=== PATIENT | female | born 1975 | race Caucasian/White ===

== ENCOUNTER → 2016-10-03 | Outpatient (CLI) | payer OTHER ==
[~2016-10-03] MED LIST: ALBUAER19 INH; HYDR2TAB48 PO; OPTIRAY 320 IV PRN; PSYL1POW4 PO; SYMIN/8045 INH
[2016-10-03 14:02] LABS: ALB/GLOB RATIO 0.9 (0.9-2); AMYLASE 43 U/L (25-115); AST/SGOT 9 U/L (15-37); BLOOD UREA NITROGEN 11 mg/dl (7-18); BUN/CREATININE RATIO 13.6 (10-20); CARBON DIOXIDE 22 mmol/L (21-32); CHLORIDE 107 mmol/L (98-107); GLUCOSE 86 mg/dl (70-99); POTASSIUM 4.5 mmol/L (3.5-5.1); SODIUM 139 mmol/L (136-145)
[2016-10-03 14:03] LABS: ALKALINE PHOSPHATASE 126 U/L (45-117); ALT/SGPT 15 U/L (12-78); C-REACTIVE PROTEIN 1.05 mg/dl (0-0.29)
--- NOTE | 2016-10-03 14:35 | DIAGNOSTIC IMAGING REPORT ---
CT OF THE ABDOMEN AND PELVIS WITH CONTRAST CLINICAL HISTORY: Abdominal pain, nausea and bloating. COMPARISON STUDY: CT of the abdomen and pelvis October 14, 2015 and abdominal ultrasound August 01, 2016 TECHNIQUE: Following IV administration of 93 mL of Optiray-320, axial images of the abdomen and pelvis were obtained from the lung bases to the proximal femurs. Images were reviewed in the axial, sagittal, and coronal planes. IV contrast was administered without complication. Oral contrast was administered. CT DOSE: 1229.93 mGy.cm FINDINGS: A 3.1 cm right adrenal lesion was shown to represent an adenoma on prior MRI. A 9 mm hypodense medial segment left hepatic lobe lesion was present on exam of August 18, 2013. Therefore, this is benign. The spleen, left adrenal gland and pancreas are normal as are the kidneys. There is no hydronephrosis. The caliber and wall thickness of small and large bowel are normal. The uterus is surgically absent. There are follicles within the ovaries. There are scattered colonic diverticula without evidence for acute diverticulitis. No suspicious osseous lesion is present. A right sided seton is in place. No abscess is identified within the perianal/perirectal region by CT. The appendix is normal. IMPRESSION: 1. No acute process within the abdomen or pelvis. 2. Normal appendix. 3. Right perianal seton in place. No perianal/perirectal abscess by CT. Electronically signed by: Heriberto Swanson M.D. 10/03/2016 2:34 PM Dictated Date/Time: 10/03/2016 2:25 PM
[2016-10-03 14:43] LABS: BASO % 0.1 %; BASO ABS # 0.02 K/uL (0-0.2); COMPLETE YES; EOS % 2.1 %; HEMATOCRIT 45.8 % (37-47); IG% 0.3 %; LYMPH ABS # 3.84 K/uL (1.2-3.4); MEAN CELL VOLUME 88.8 fL (80-100); MEAN CORPUSCULAR HEMOGLOBIN 30.6 pg (25-34); MEAN CORPUSCULAR HGB CONC 34.5 g/dl (32-36); MONO % 4.2 %; NEUT % 65.3 %; PLATELET COUNT 443 K/uL (130-400); RED BLOOD COUNT 5.16 M/uL (4.2-5.4); WHITE BLOOD COUNT 13.72 K/uL (4.8-10.8)
[2016-10-06 23:28] LABS: IGA SERUM 370 mg/dL (81-463); TIS TRANS IGA 1 U/mL (<4)
== END | disposition home or self-care (01) ==
LOC: C.CTS 12:17
PROVIDERS: ATTEND Registered Nurse
DX: R11.0 Nausea (principal); R14.0 Abdominal distension (gaseous); R10.9 Unspecified abdominal pain

== ENCOUNTER → 2016-12-07 | Outpatient (CLI) | payer OTHER ==
[~2016-12-07] MED LIST changes: -OPTIRAY 320 IV PRN
--- NOTE | 2016-12-07 13:42 | DIAGNOSTIC IMAGING REPORT ---
NUCLEAR GASTRIC EMPTYING STUDY CLINICAL HISTORY: Generalized abdominal pain. COMPARISON STUDY: Abdominal CT dated 10/03/2016. TECHNIQUE: Following the oral administration of 1.074 mCi of technetium 99m sulfur colloid in egg sandwich and 8 ounces of water, static abdominal images are obtained anteriorly and posteriorly at 0 minutes, 1 hour, 2 hour, and 4 hour time intervals. Gastric emptying was calculated utilizing the geometric mean method. FINDINGS: There is approximately 7 the% activity remaining at the 1 hour time interval, 39% remaining at the 2 hour time interval (normal is less than 60%), and 8% activity remaining at the 4 hour time interval (normal is less than 10%). IMPRESSION: Findings are consistent with normal gastric emptying for solids. Electronically signed by: Carl Meyer M.D. 12/07/2016 1:40 PM Dictated Date/Time: 12/07/2016 1:39 PM
== END | disposition home or self-care (01) ==
LOC: C.NUCL 08:55
PROVIDERS: ATTEND Registered Nurse
DX: R10.9 Unspecified abdominal pain (principal)

== ENCOUNTER → 2018-03-06 | Outpatient (CLI) | payer OTHER ==
--- NOTE | 2018-03-15 08:47 | PULMONARY FUNCTION TEST ---
Pre-bronchodilator spirometry reveals a moderately severe obstructive ventilatory defect even more pronounced low lung volumes. There was an excellent response to bronchodilators suggesting a reversible airways component. Lung volumes demonstrate evidence for significant hyperinflation and air trapping. Diffusion capacity was minimally reduced. Clinical correlation is needed.
== END | disposition home or self-care (01) ==
LOC: C.RC 13:55
PROVIDERS: ATTEND Physician Assistant Medical
DX: R05 Cough (principal); F17.200 Nicotine dependence, unspecified, uncomplicated

== ENCOUNTER 2018-03-31 21:21 | Inpatient (IN) | payer OTHER ==
[~2018-03-31] VITALS: Ht 162.6 cm; Wt 115.3 kg
[2018-03-31] MEDS ORDERED: METOCLOPRAMIDE HCL INJ 5 MG/ML 2 ML VIAL IV STA (21:51)
[2018-03-31] MEDS ORDERED: KETOROLAC TROMETHAMINE 30 MG/ML VIAL IV STA (21:51)
[2018-03-31] MEDS ORDERED: SODIUM CHLORIDE 0.9% 1000ML 1,000 ML IV STA (21:51)
[2018-03-31] MEDS ORDERED: CIPROFLOXACIN 400MG / 200ML D5W IV STA (21:51)
[2018-03-31] MEDS ORDERED: DiphenhydrAMINE HCL 50 MG/ML VIAL IV STA (21:51)
[2018-03-31] MEDS ORDERED: METRONIDAZOLE 500MG / 100ML NSS IV STA (21:51)
[2018-03-31] MEDS ORDERED: OPTIRAY 320 IV PRN (22:00)
[2018-03-31 22:48] LABS: BASO % 0.1 %; BASO ABS # 0.02 K/uL (0-0.2); EOS % 1.6 %; EOS ABS # 0.29 K/uL (0-0.5); HEMATOCRIT 40.3 % (37-47); HEMOGLOBIN 13.6 g/dL (12.0-16.0); IG# 0.05 K/uL (0.00-0.02); LYMPH % 18.5 %; LYMPH ABS # 3.45 K/uL (1.2-3.4); MEAN CELL VOLUME 91.2 fL (80-100); MEAN CORPUSCULAR HEMOGLOBIN 30.8 pg (25-34); MEAN CORPUSCULAR HGB CONC 33.7 g/dl (32-36); MEAN PLATELET VOLUME 9.9 fL (7.4-10.4); MONO % 5.7 %; MONO ABS # 1.06 K/uL (0.11-0.59); NEUT % 73.8 %; PLATELET COUNT 356 K/uL (130-400); RED CELL DISTRIBUTION WIDTH SD 43.3 fL (36.4-46.3); WHITE BLOOD COUNT 18.67 K/uL (4.8-10.8)
[2018-03-31 22:54] LABS: CALCIUM 8.3 mg/dl (8.5-10.1); CREATININE 0.65 mg/dl (0.60-1.20); POTASSIUM 3.6 mmol/L (3.5-5.1)
[2018-04-01] MEDS ORDERED: ONDANSETRON INJ 2 MG/ML 2 ML VIAL IV PRN ×2 (02:15→07:30)
[2018-04-01] MEDS ORDERED: HYDROmorphone INJ 1 MG/ML SYR IV PRN (02:15)
[2018-04-01] MEDS ORDERED: HYDROmorphone INJ 0.5 MG/0.5 ML SYR IV PRN (02:15)
[2018-04-01] MEDS ORDERED: SODIUM CHLORIDE 0.9% 1000ML 1,000 ML IV SCH (02:15)
[2018-04-01] MEDS ORDERED: ACETAMINOPHEN IV 100 ML IV PRN (02:15)
--- NOTE | 2018-04-01 02:28 | Surgery Consultation ---
Consultation Date of Consultation: Apr 01, 2018. Attending Physician: Reason for Consultation: Perirectal abscess History of Present Illness Patient is an otherwise healthy 42F who presented to the ED tonight due to rectal pain and swelling. Reports she has a history of perirectal abscesses and follows with Dr. Valdivia in [place]. 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 Her last was approximately 2 years ago and she had a seton placed at that time due to a fistulous tract. Reports she has had no problems since then. She has not noticed any discharge from the area but feels it is tender, red and swelling similar to her abscesses in the past. Reports she typically has these drained in the OR. Denies fever, chills, recent illness. She does not take any blood thinning or anticoagulant medications. WBC 18.67. CT Pelvis w/ IV contrast shows round complex fluid collection along the right gluteal cleft measuring 4.0 x 2.9 x 2.7 cm, small adjacent wire/suture in place, regional reactive changes including fat stranding, edema and skin thickening. Social History Smoking Status: Current Every Day Smoker Marital Status: Housing Status: lives with family Occupation Status: unemployed Allergies Coded Allergies: Codeine (Verified Allergy, Mild, itching, 04/01/18) Oxycodone (Verified Adverse Reaction, Severe, GI SYMPTOMS, 04/01/18) HEADACHE & N/V Home Medications Scheduled PRN Albuterol Inhaler (Ventolin Inhaler), 2 PUFFS INH Q4H PRN for Asthma Symptoms Budesonide/Formoterol Fumarate (Symbicort 80/4.5 Inhaler), 2 PUFFS INH BID PRN for SOB/Wheezing Current Inpatient Medications Current Inpatient Medications Medications (Trade) Dose Ordered Sig/Eloy Route Start Time Stop Time Status Last Admin Dose Admin Ioversol (Optiray 320) 100 ml UD PRN IV 03/31/18 22:00 04/04/18 21:59 Review of Systems Constitutional: No fever, No chills Respiratory: No shortness of breath Cardiovascular: No chest pain Abdomen: No pain Genitourinary - Female: No dysuria, No hematuria Integumentary: + problem reported (perirectal abscess) Physical Exam Date Time Temp Pulse Resp B/P (MAP) Pulse Ox O2 Delivery O2 Flow Rate FiO2 04/01/18 00:00 84 16 133/75 95 Room Air 03/31/18 23:22 82 16 136/69 92 Room Air 03/31/18 21:28 36.8 100 20 150/94 95 Room Air General Appearance: no apparent distress, + obese Head: atraumatic ENT: hearing grossly normal Respiratory/Chest: no respiratory distress Abdomen/GI: non tender, soft Neurologic/Psych: alert, normal mood/affect, oriented x 3 Skin: + pertinent finding (erythema, mild swelling and moderate TTP along right gluteal cleft w/ palpable fluid collection - seton appreciated and appears in place - no significant induration noted on exam. ) Laboratory Results Last 24 Hours Test 03/31/18 22:19 03/31/18 22:20 03/31/18 22:25 Urine Color YELLOW Urine Appearance CLEAR Urine pH 7.0 Urine Specific [place] 1.004 Urine Protein NEG Urine Glucose (UA) NEG Urine Ketones NEG Urine Occult Blood NEG Urine Nitrite NEG Urine Bilirubin NEG Urine Urobilinogen NEG Urine Leukocyte Esterase NEG White Blood Count 18.67 K/uL Red Blood Count 4.42 M/uL Hemoglobin 13.6 g/dL Hematocrit 40.3 % Mean Corpuscular Volume 91.2 fL Mean Corpuscular Hemoglobin 30.8 pg Mean Corpuscular Hemoglobin Concent 33.7 g/dl Platelet Count 356 K/uL Mean Platelet Volume 9.9 fL Neutrophils (%) (Auto) 73.8 % Lymphocytes (%) (Auto) 18.5 % Monocytes (%) (Auto) 5.7 % Eosinophils (%) (Auto) 1.6 % Basophils (%) (Auto) 0.1 % Neutrophils # (Auto) 13.80 K/uL Lymphocytes # (Auto) 3.45 K/uL Monocytes # (Auto) 1.06 K/uL Eosinophils # (Auto) 0.29 K/uL Basophils # (Auto) 0.02 K/uL RDW Standard Deviation 43.3 fL RDW Coefficient of Variation 13.0 % Immature Granulocyte % (Auto) 0.3 % Immature Granulocyte # (Auto) 0.05 K/uL Sodium Level 137 mmol/L Potassium Level 3.6 mmol/L Chloride Level 105 mmol/L Carbon Dioxide Level 25 mmol/L Anion Gap 7.0 mmol/L Blood Urea Nitrogen 7 mg/dl Creatinine 0.65 mg/dl Est Creatinine Clear Calc Drug Dose 139.1 ml/min Estimated GFR () 126.0 Estimated GFR (Non- 108.7 BUN/Creatinine Ratio 11.1 Random Glucose 92 mg/dl Calcium Level 8.3 mg/dl Bedside Lactic Acid Venous 0.75 mmol/L Assessment & Plan recurrent perirectal abscess Findings discussed with Dr. Bonilla and Freda Joshi PA-C. Perirectal area w/ erythema, swelling, TTP - no significant induration at this time. WBC 18.67, afebrile, vitals stable. Given her white count and findings on exam and imaging - patient would greatly benefit from IV antibiotics and I&D. Patient initially did not want to be admitted against our recommendations- risks of leaving AMA were discussed with her in detail - after some time to think she was agreeable to admission. Plan for I&D perirectal abscess in the OR with Dr. Bonilla later this morning. Risks, benefits alternatives to the procedure were discussed - questions answered. Admit med/surg, NPO, IVF, IV Cipro/Flagyl, pain medication prn, Zofran prn, SCDs. OR notified. Please contact with questions or concerns.
--- NOTE | 2018-04-01 02:35 | EMERGENCY ROOM VISIT NOTE ---
History First contact with patient: 21:37 Chief Complaint: RECTAL PAIN Stated Complaint: CORINA ANAL ABCESS Nursing Triage Summary: Pt states that she started to have rectal pain . On Monday the pain became more severe. Pt states that she has a history of perirectal abcess and she is pretty sure that is what she has. Pt stated that she came to the ED tonight become the pain has become to severe to wait to go to her surgeon. History of Present Illness The patient is a 42 year old female who presents to the Emergency Room with complaints of rectal pain and swelling.Pt states she has a history of perirectal abscesses and follows with Dr. Valdivia in [place]. 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 Her last was approximately 2 years ago and she had a seton placed at that time due to a fistulous tract. Reports she has had no problems since then. She has not noticed any discharge from the area but feels it is tender, red and swelling similar to her abscesses in the past. Reports she typically has these drained in the OR. Patient denies chest pain, dyspnea, fever, chills, cough, congestion, nausea, vomiting, diarrhea, lightheadedness or dizziness. Tetanus is current. No drug use. Review of Systems An 10 system review of systems was completed with positives and pertinent negatives listed in the HPI. Past Medical/Surgical History Medical Problems: (1) Corina-rectal abscess Social History Smoking Status: Current Every Day Smoker Alcohol Use: occasionally Marital Status: Housing Status: lives with family Occupation Status: unemployed Current/Historical Medications Scheduled PRN Albuterol Inhaler (Ventolin Inhaler), 2 PUFFS INH Q4H PRN for Asthma Symptoms Budesonide/Formoterol Fumarate (Symbicort 80/4.5 Inhaler), 2 PUFFS INH BID PRN for SOB/Wheezing Physical Exam Vital Signs Date Time Temp Pulse Resp B/P (MAP) Pulse Ox O2 Delivery O2 Flow Rate FiO2 04/01/18 02:04 85 16 149/89 96 Room Air 04/01/18 00:00 84 16 133/75 95 Room Air 03/31/18 23:22 82 16 136/69 92 Room Air 03/31/18 21:28 36.8 100 20 150/94 95 Room Air Physical Exam VITALS: Vitals are noted on the nurse's note and reviewed by myself. Vital signs stable. GENERAL: pleasant female, in no acute distress, nondiaphoretic, well-developed well-nourished. SKIN: The skin was without rashes, erythema, edema, or bruising. There is no tenting of the skin. Capillary reflex less than 2 seconds. HEAD: Normocephalic atraumatic. EARS: External auditory canals clear, tympanic membranes pearly noonan without erythema or effusion bilaterally. EYES: Pupils equal round and reactive to light and accommodation. Conjunctivae without injection, sclerae without icterus. Extraocular movements intact. NOSE: Patent, turbinates without inflammation or discharge MOUTH: Mucous membranes moist. Pharynx without erythema or exudate. Uvula midline. Airway patent. Tongue does not deviate. NECK: Supple without nuchal rigidity. No lymphadenopathy. No thyromegaly. Cervical spine is nontender. No JVD. HEART: Regular rate and rhythm without murmurs gallops or rubs. LUNGS: Clear to auscultation bilaterally without wheezes, rales or rhonchi. No retractions or accessory muscle use. ABDOMEN: Positive bowel sounds x 4. Normal tympanic percussion. Soft, nontender, without masses or organomegaly. Casiano sign negative. No guarding or rebound tenderness. No CVA tenderness. Rectal exam: Rectal area erythematous and edematous with fistula tract suture in place concerning for cellulitis and abscess. No perineum pain or redness. No lymphangitis. MUSCULOSKELETAL: No muscle atrophy, erythema, or edema noted. NEURO: Patient was alert and oriented to person place and time. Normal sensation to light and sharp touch. No focal neurological deficits. Medical Decision & Procedures Laboratory Results 03/31/18 22:20 Red Blood Count 4.42, Mean Corpuscular Volume 91.2, Mean Corpuscular Hemoglobin 30.8, Mean Corpuscular Hemoglobin Concent 33.7, Mean Platelet Volume 9.9, Neutrophils (%) (Auto) 73.8, Lymphocytes (%) (Auto) 18.5, Monocytes (%) (Auto) 5.7, Eosinophils (%) (Auto) 1.6, Basophils (%) (Auto) 0.1, Neutrophils # (Auto) 13.80, Lymphocytes # (Auto) 3.45, Monocytes # (Auto) 1.06, Eosinophils # (Auto) 0.29, Basophils # (Auto) 0.02 03/31/18 22:20 Test 03/31/18 22:19 03/31/18 22:20 03/31/18 22:25 Urine Color YELLOW Urine Appearance CLEAR (CLEAR) Urine pH 7.0 (4.5-7.5) Urine Specific [place] 1.004 (1.000-1.030) Urine Protein NEG (NEG) Urine Glucose (UA) NEG (NEG) Urine Ketones NEG (NEG) Urine Occult Blood NEG (NEG) Urine Nitrite NEG (NEG) Urine Bilirubin NEG (NEG) Urine Urobilinogen NEG (NEG) Urine Leukocyte Esterase NEG (NEG) White Blood Count 18.67 K/uL (4.8-10.8) Red Blood Count 4.42 M/uL (4.2-5.4) Hemoglobin 13.6 g/dL (12.0-16.0) Hematocrit 40.3 % (37-47) Mean Corpuscular Volume 91.2 fL (80-100) Mean Corpuscular Hemoglobin 30.8 pg (25-34) Mean Corpuscular Hemoglobin Concent 33.7 g/dl (32-36) Platelet Count 356 K/uL (130-400) Mean Platelet Volume 9.9 fL (7.4-10.4) Neutrophils (%) (Auto) 73.8 % Lymphocytes (%) (Auto) 18.5 % Monocytes (%) (Auto) 5.7 % Eosinophils (%) (Auto) 1.6 % Basophils (%) (Auto) 0.1 % Neutrophils # (Auto) 13.80 K/uL (1.4-6.5) Lymphocytes # (Auto) 3.45 K/uL (1.2-3.4) Monocytes # (Auto) 1.06 K/uL (0.11-0.59) Eosinophils # (Auto) 0.29 K/uL (0-0.5) Basophils # (Auto) 0.02 K/uL (0-0.2) RDW Standard Deviation 43.3 fL (36.4-46.3) RDW Coefficient of Variation 13.0 % (11.5-14.5) Immature Granulocyte % (Auto) 0.3 % Immature Granulocyte # (Auto) 0.05 K/uL (0.00-0.02) Anion Gap 7.0 mmol/L (3-11) Est Creatinine Clear Calc Drug Dose 139.1 ml/min Estimated GFR () 126.0 Estimated GFR (Non- 108.7 BUN/Creatinine Ratio 11.1 (10-20) Calcium Level 8.3 mg/dl (8.5-10.1) Bedside Lactic Acid Venous 0.75 mmol/L (0.90-1.70) Medications Administered Medications (Trade) Dose Ordered Sig/Eloy Route Start Time Stop Time Status Last Admin Dose Admin Ciprofloxacin/ Dextrose (Cipro / D5W) 400 mg NOW STAT IV 03/31/18 21:51 03/31/18 21:56 DC 03/31/18 23:53 400 MG Metronidazole (Flagyl / Nss) 500 mg NOW STAT IV 03/31/18 21:51 03/31/18 21:56 DC 03/31/18 22:36 500 MG Ketorolac Tromethamine (Toradol Inj) 10 mg NOW STAT IV 03/31/18 21:51 03/31/18 21:56 DC 03/31/18 22:36 10 MG Metoclopramide HCl (Reglan Inj) 10 mg NOW STAT IV 03/31/18 21:51 03/31/18 21:56 DC 03/31/18 22:35 10 MG Diphenhydramine HCl (Benadryl Inj) 25 mg NOW STAT IV 03/31/18 21:51 03/31/18 21:56 DC 03/31/18 22:36 25 MG Sodium Chloride 1,000 ml @ 999 mls/hr Q1H1M STAT IV 03/31/18 21:51 03/31/18 22:51 DC 03/31/18 22:34 999 MLS/HR ED Course Prior records/ancillary studies reviewed. Triage Nursing notes reviewed. Additional history obtained from family The patient's history was concerning for rectal pain. Differential diagnosis: Etiologies such as rectal abscess, rectal cellulitis, Esteban's gangrene, diverticulitis, UTI, infections, inflammatory bowel disease, renal colic, as well as others were entertained. Physical examination findings: As above. ER treatment provided: Cipro, Flagyl, IV fluids, Toradol, Reglan, Benadryl On reassessment the patient felt better. Diagnostics interpreted by me: The labs revealed leukocyte ptosis, stable H&H. Imaging studies: CT PELVIS: Rounded complex fluid collection is identified along the rightward gluteal cleft measuring 4.0 x 2.9 x 2.7 cm. Small adjacent wire or suture is identified, correlate for previous surgery and history of fistula. There are regional reactive changes including fat stranding/edema as well as skin thickening. Limited characterization of the distal rectum due to underdistention and lack of intraluminal contrast. Unremarkable appearance of the appendix. Fatty umbilical hernia. Radiologist: Maulik Pérez MD Consultation: A consultation was placed with the surgical PADaniel. The case was discussed and diagnostics were reviewed. The patient was evaluated in the ER for further treatment. Patient was admitted to their service Exam and history seem consistent with perirectal abscess that is recurrent. Surgery was consulted. They will admit the patient. She was started on antibiotics. Patient agrees to treatment plan. Patient is afebrile and nontoxic. No signs of Esteban's gangrene. Lactic acid was negative. By the evaluation outlined above emergent etiologies such as appendicitis, diverticulitis, PUD, biliary pathology, UTI, pancreatitis, obstruction, mesenteric ischemia, aortic pathology, inflammatory bowel disease, renal colic , as well as others were deemed relatively unlikely. The pt informed about the findings as listed above. All questions were answered and pleased with the treatment. Case reviewed with my attending The chart was completed utilizing [employer] Speech voice recognition software. Grammatical errors, random word insertions, pronoun errors, and incomplete sentences are an occassional consequence of this system due to software limitations, ambient noise, and hardware issues. Any formal questions or concerns about the content, text, or information contained within the body of this dictation should be directly addressed to the physician assistant professor of sociology for clarification. Medical Decision As above Medication Reconcilliation Current Medication List: was personally reviewed by me Blood Pressure Screening Patient's blood pressure: Normal blood pressure Impression Primary Impression: Corina-rectal abscess Departure Information Dispostion Being Evaluated By Surgeon Condition GOOD Referrals Raya Galvez,P.A. (PCP) Patient Instructions [facility]
[2018-04-01 03:24] VITALS: BP 147/84; PULSE 84; TEMP 37; O2SAT 96; Ht 162.6 cm; Wt 115.3 kg
[2018-04-01] MEDS ORDERED: HYDROmorphone INJ 1 MG/ML SYR ONE ×2 (04:05→08:47)
[2018-04-01] MEDS ORDERED: METRONIDAZOLE / NSS 500 MG in PREMIXED NSS 100 ML IV SCH (06:00)
[2018-04-01] MEDS ORDERED: ONDANSETRON INJ 2 MG/ML 2 ML VIAL ONE (07:08)
[2018-04-01] MEDS ORDERED: LIDOCAINE HCL 2% 2 ML VIAL (20MG/ML) ONE (07:08)
[2018-04-01] MEDS ORDERED: MIDAZOLAM HCL 1 MG/ML 2ML VIAL ONE (07:08)
[2018-04-01] MEDS ORDERED: FENTANYL CITRATE INJ 50 MCG/1 ML 2 ML VIAL ONE ×2 (07:08→08:23)
[2018-04-01] MEDS ORDERED: PROPOFOL IV EMULSION 10 MG/ML 20 ML VIAL ONE (07:08)
[2018-04-01] MEDS ORDERED: ROCURONIUM BROMIDE 10 MG/ML 5 ML VIAL ONE (07:08)
[2018-04-01] MEDS ORDERED: DEXAMETHASONE SOD INJ 4 MG/ML VIAL ONE (07:08)
[2018-04-01] MEDS ORDERED: ATROPINE SULFATE 0.1 MG/ML 5ML SYR IV PRN ×2 (07:30→10:30)
[2018-04-01] MEDS ORDERED: PHENYLEPHRINE 100MCG/ML 5ML SYR IV PRN (07:30)
[2018-04-01] MEDS ORDERED: EpHEDrine SULFATE INJ 50 MG/ML AMP IV PRN ×2 (07:30→10:30)
[2018-04-01 07:46] VITALS: BP_SYST 117; BP_SYST 145; BP_DIAS 68; BP_DIAS 76; PULSE 64; PULSE 84; TEMP 37.1; TEMP 37.3; O2SAT 92; O2SAT 95
[2018-04-01] MEDS ORDERED: BUPIVACAINE/EPINEPHRINE 0.5% MPF 1:200,000 30 ML VIAL ONE (07:47)
[2018-04-01] MEDS ORDERED: GELATIN SPONGE SZ 100 ONE (07:47)
[2018-04-01] MEDS ORDERED: METR-162 PO (08:02)
[2018-04-01] MEDS ORDERED: CIPR1TAB10 PO (08:02)
[2018-04-01] MEDS ORDERED: TRAM-453 PO (08:02)
--- NOTE | 2018-04-01 08:23 | [facility] Post Operative Brief Note ---
Immediate Operative Summary Operative Date Apr 01, 2018. Pre-Operative Diagnosis carol-rectal abcess Post-Operative Diagnosis same as pre op Procedure(s) Performed incision/drainage of carol-rectal abcess Surgeon Bonilla Manager Respiratory Care Surgeon(s) Jose Stark Estimated Blood Loss 5 cc Findings Consistent with Post-Op Diagnosis Specimens fluid for culture Complication(s) none
[2018-04-01] MEDS ORDERED: RANITIDINE HCL 25 MG/ML INJ ONE (08:36)
--- NOTE | 2018-04-01 08:36 | Discharge Instructions ---
Discharge Instructions Date of Service Apr 01, 2018. Admission Reason for Admission: Corina-Rectal Abscess Discharge Discharge Diagnosis / Problem: Corina-Rectal Abscess Discharge Goals Goal(s): Decrease discomfort, Improve function Activity Recommendations Activity Limitations: as noted below Lifting Limitations: gradually increase as tolerated Exercise/Sports Limitations: as tolerated May Resume Sexual Activity: when tolerated Shower/Bathe: no limitations Driving or Machine Use: resume 1 day after discharge . Instructions / Follow-Up Instructions / Follow-Up You have been prescribed oral antibiotics and a prescription pain medication. It is important to take this medications as prescribed. Packing should be changed daily. Please follow-up with Dr. Valdivia- if you are unable to get an appointment, please follow-up with Dr. Bonilla in the General Surgery Clinic for wound check and packing change. Please call the General Surgery Clinic at [phone]. General Surgery clinic is located at [address] [place], [place] [address]. General Surgery Clinic phone number is [phone]. If you have any questions or concerns, please call the General Surgery Clinic at [phone]. Current Hospital Diet Patient's current hospital diet: Discharge Diet Recommended Diet: Regular Diet Pending Studies Studies pending at discharge: yes List of pending studies: Wound culture. Medical Emergencies . Who to Call and When: Medical Emergencies: If at any time you feel your situation is an emergency, please call 911 immediately. . Non-Emergent Contact Non-Emergency issues call your: Primary Care Provider, Surgeon Call Non-Emergent contact if: temperature is above 101.5, your pain is not controlled, wound has increased drainage, wound has increased redness . "Provider Documentation" section prepared by Janis Garcia. .
[2018-04-01] MEDS: HYDROmorphone INJ 1 MG/ML SYR IV PRN ×2 (08:48→08:54)
--- NOTE | 2018-04-01 08:48 | DIAGNOSTIC IMAGING REPORT ---
CT OF THE PELVIS WITH CONTRAST CLINICAL HISTORY: Perianal abscess. Rectal pain and swelling. COMPARISON STUDY: CT of the abdomen and pelvis October 03, 2016. TECHNIQUE: Axial images of the pelvis were obtained following intravenous injection of 94 cc Optiray 320 IV. Sagittal and coronal reconstructions were viewed. FINDINGS: No pelvic lymphadenopathy is noted. There is no ascites. Caliber and wall thickness of visualized small and large bowel are normal. The appendix is unremarkable. A right sided seton is in place. There is moderate inflammation within the medial right gluteal fold. Note is made of a 3 x 2.4 x 2.3 cm right perirectal/gluteal fold fluid collection which is suggestive of an abscess. The seton adjacent to the course is through a portion of this suspected abscess. No additional abscesses are identified. Visualized skeletal structures are unremarkable. IMPRESSION: 3 x 2.4 x 2.3 cm right perirectal/medial gluteal fold abscess with associated cellulitis. Right seton in place. Electronically signed by: Heriberto Swanson M.D. 04/01/2018 8:47 AM Dictated Date/Time: 04/01/2018 8:41 AM
[2018-04-01 09:25] VITALS: BP 131/70; PULSE 78; TEMP 36.8; O2SAT 97
--- NOTE | 2018-04-01 09:46 | [facility] Operative Report ---
Operative Report Operative Date Apr 01, 2018. Pre-Operative Diagnosis carol-rectal abcess Post-Operative Diagnosis same as pre op Procedure(s) Performed incision/drainage of carol-rectal abcess Surgeon Chad Hogshead Roller Surgeon(s) Jose Stark Estimated Blood Loss 5 cc Specimens fluid for culture Anesthesia Type General Complication(s) none Description of Procedure After informed consent was obtained the patient was taken to the operating room and placed in a supine position. After successful placement of the laryngeal mask airway the patient was placed in a high lithotomy position. The perirectal area was sterilely prepped and draped in usual fashion. I began by using an 18-gauge finder needle to locate the abscess without difficulty. About 7 cc was obtained and sent for culture and sensitivity. I then used a 15 blade scalpel to make an incision directly over the abscess. This was carried down through the soft tissue using primarily blunt finger fractionation until I encountered a moderate sized abscess cavity. It did track medially towards the rectum itself and towards her current seton. I obtained a fair amount of noonan foul-smelling fluid. After extracting all that I could manually we then thoroughly irrigated the wound. It was packed with half-inch iodoform packing. Sterile gauze and tape dressing were applied. The patient was placed back into a supine position and extubated. She was transferred to the recovery room in stable condition. My physician's clinical services assistant was present for the entire case. She will prep the patient. Help with exposure as well as dressing placement. Prior to going back to the operating room I discussed with the patient staying overnight for continued IV antibiotics following, her fever curve and rechecking her white blood cell count as well as local wound care prior to discharge, likely tomorrow. The patient adamantly refused this. She wants to go home. We will send her home on oral antibiotics. She states she will follow up with her colorectal surgeon within the next couple of days. If she is unable to follow-up with him she is to follow-up with me early next week. She knows how to perform local wound care. Her significant other has done packing changes previously. She knows to do sitz baths as well. I attest to the content of the Intraoperative Record and any orders documented therein. Any exceptions are noted below.
[2018-04-01 09:55] VITALS: BP 147/80; PULSE 82; TEMP 36.8; O2SAT 94
[2018-04-01 10:25] VITALS: BP 134/78; PULSE 84; TEMP 36.9; O2SAT 94
--- NOTE | 2018-04-01 10:25 | Anesthesiology Progress Note ---
Anesthesia Post Op Note Date & Time Apr 01, 2018 at 10:24 Vital Signs Pain Intensity: 2 Vital Signs Past 12 Hours Date Time Temp Pulse Resp B/P (MAP) Pulse Ox O2 Delivery O2 Flow Rate FiO2 04/01/18 09:10 77 14 123/61 98 Nasal Cannula 2 04/01/18 09:00 36.8 78 16 121/57 92 Room Air 04/01/18 08:50 80 13 125/55 95 Room Air 04/01/18 08:40 79 21 146/67 98 Room Air 04/01/18 08:33 37.0 82 20 138/66 98 Oxymask 10 04/01/18 07:46 37.1 84 20 117/68 (84) 95 Room Air 04/01/18 07:30 Room Air 04/01/18 03:24 37.0 84 18 147/84 96 Room Air 04/01/18 02:04 85 16 149/89 96 Room Air 04/01/18 00:00 84 16 133/75 95 Room Air 03/31/18 23:22 82 16 136/69 92 Room Air Notes Mental Status: alert / awake / arousable, participated in evaluation Pt Amnestic to Procedure: Yes Nausea / Vomiting: adequately controlled Pain: adequately controlled Airway Patency, RR, SpO2: stable & adequate BP & HR: stable & adequate Hydration State: stable & adequate Anesthetic Complications: no major complications apparent
[2018-04-01] MEDS ORDERED: FENTANYL CITRATE INJ 50 MCG/1 ML 2 ML VIAL IV PRN (10:30)
[2018-04-01 10:47] VITALS: BP 123/61; PULSE 77; TEMP 36.8; O2SAT 98
[2018-04-01] MEDS ORDERED: CIPROFLOXACIN / D5W 400 MG in PREMIXED IN D5W 200 ML IV SCH (12:00)
== END 2018-04-01 11:20 | disposition home or self-care (01) | DRG 345 ==
LOC: C.EDB 21:23 → C.MSN 04-01 02:12 → ENRESERV 04-01 03:00
PROVIDERS: ADMIT Surgery; ATTEND Surgery
PROC: 0D9P0ZZ Drainage of Rectum, Open Approach (ICD-10-PCS; principal; 2018-04-01 06:18)
PROC: 0D9P3ZX Drainage of Rectum, Percutaneous Approach, Diagnostic (ICD-10-PCS; principal; 2018-04-01 06:18)
DX: K61.1 Rectal abscess (principal); Z68.41 Body mass index [BMI] 40.0-44.9, adult; J44.9 Chronic obstructive pulmonary disease, unspecified; F17.210 Nicotine dependence, cigarettes, uncomplicated; E66.01 Morbid (severe) obesity due to excess calories; Z88.5 Allergy status to narcotic agent